=== PATIENT | female | born 1980 | race Caucasian/White ===

== ENCOUNTER 2019-03-26 09:00 | Emergency (ER) | payer MEDICAID ==
[~2019-03-26] VITALS: Ht 167.6 cm; Wt 66.2 kg
[2019-03-26 09:02] VITALS: Ht 167.6 cm; Wt 66.2 kg
[2019-03-26 10:27] VITALS: BP 122/58
== END 2019-03-26 10:27 | disposition home or self-care (01) ==
LOC: ED 09:00
DX: R10.13 Epigastric pain (principal); J45.909 Unspecified asthma, uncomplicated